=== PATIENT | female | born 1945 | race Caucasian/White ===

== ENCOUNTER 2016-07-18 12:05 | Outpatient (CLI) | payer MEDICARE, OTHER ==
[2005-06-07 09:01] VITALS: BP 155/82
[~2016-07-18] VITALS: Ht 165.1 cm; Wt 68.0 kg
[~2016-07-18 12:05] MED LIST: ATORVASTATIN; BENICAR; CLONAZEPAM PO; COZAAR100 MG PO; FLEXERIL10 MG PO; INDERAL; KLONOPIN 0.5MG0.5 MG PO; LEVOTHYROXINE PO; LIOTHYRONINE S25 MCG PO; NORCO 325 MG-51 TAB PO; PAMELOR 25MG25 MG PO; PRAVACHOL 40MG40 MG PO; PROTONIX 40MG T40 MG PO; SYNTHROID0.05 MG/TA PO
[2016-07-18] MEDS ORDERED: NEURONTIN100 MG/CAP PO (12:21)
[2016-07-18 12:30] VITALS: BP 146/62; PULSE 116; TEMP 98.7
[2016-07-18 13:14] VITALS: BP 146/62; PULSE 116; TEMP 98.7
[2016-08-04] MEDS ORDERED: NEURONTIN100 MG/CAP PO (10:51)
== END 2016-07-18 14:07 | disposition home or self-care (01) ==
LOC: EUO 12:05
DX: K59.00 Constipation, unspecified (principal); K56.41 Fecal impaction

== ENCOUNTER 2016-08-08 08:31 | Outpatient (CLI) | payer MEDICARE, OTHER ==
[2005-06-07 09:01] VITALS: BP 155/82
[~2016-08-08] VITALS: Ht 165.1 cm; Wt 69.9 kg
[~2016-08-08 08:31] MED LIST changes: +NEURONTIN100 MG/CAP PO
[2016-08-08 08:44] VITALS: PULSE 96
[2016-08-08 10:15] VITALS: BP 152/87; PULSE 95
[2016-08-08 10:28] VITALS: BP 152/87; PULSE 97
[2016-08-08 10:30] VITALS: BP 150/81; PULSE 91
[2016-08-08 10:45] VITALS: BP 164/89; PULSE 90
[2016-08-08 11:15] VITALS: BP 160/84; PULSE 90
== END 2016-08-08 12:00 | disposition home or self-care (01) ==
LOC: COL.RAD 08:31
DX: M48.06 Spinal stenosis, lumbar region (principal); M43.17 Spondylolisthesis, lumbosacral region; M96.1 Postlaminectomy syndrome, not elsewhere classified
CPT/HCPCS: Q9965

== ENCOUNTER → 2016-08-17 | Outpatient (CLI) | payer MEDICARE, OTHER | LOC: MC.RAD 10:28 | DX: Z12.31 Encounter for screening mammogram for malignant neoplasm of breast (principal) ==

== ENCOUNTER → 2017-02-21 | Outpatient (CLI) | payer MEDICARE, OTHER | LOC: COL.RAD 09:58 | DX: M48.061 Spinal stenosis, lumbar region without neurogenic claudication (principal); S33.140A Subluxation of L4/L5 lumbar vertebra, initial encounter; M47.817 Spondylosis without myelopathy or radiculopathy, lumbosacral region; Z98.1 Arthrodesis status ==

== ENCOUNTER → 2017-09-07 | Outpatient (CLI) | payer MEDICARE, OTHER | LOC: MC.RAD 11:10 | DX: Z12.31 Encounter for screening mammogram for malignant neoplasm of breast (principal) ==

== ENCOUNTER → 2018-09-14 | Outpatient (CLI) | payer MEDICARE, OTHER | LOC: MC.RAD 10:33 | DX: Z12.31 Encounter for screening mammogram for malignant neoplasm of breast (principal) ==

== ENCOUNTER → 2019-11-15 | Outpatient (CLI) | payer MEDICARE, OTHER | LOC: MC.RAD 12:44 | DX: Z12.31 Encounter for screening mammogram for malignant neoplasm of breast (principal) ==

== ENCOUNTER → 2020-11-25 | Outpatient (CLI) | payer MEDICARE, OTHER | LOC: MC.RAD 10:24 | DX: Z12.31 Encounter for screening mammogram for malignant neoplasm of breast (principal); N64.89 Other specified disorders of breast ==

== ENCOUNTER → 2020-12-03 | Outpatient (CLI) | payer MEDICARE, OTHER | LOC: MC.RAD 12:52 | DX: N64.89 Other specified disorders of breast (principal); R92.2 Inconclusive mammogram ==

== ENCOUNTER → 2020-12-14 | Outpatient (CLI) | payer MEDICARE, OTHER | LOC: MC.RAD 12-09 07:00 | DX: N64.89 Other specified disorders of breast (principal); Z98.82 Breast implant status ==

== ENCOUNTER → 2021-12-15 | Outpatient (CLI) | payer MEDICARE, OTHER | LOC: MC.RAD 10:37 | DX: Z12.31 Encounter for screening mammogram for malignant neoplasm of breast (principal) ==

== ENCOUNTER → 2023-01-17 | Outpatient (CLI) | payer MEDICARE, OTHER | LOC: MC.RAD 10:26 | DX: Z12.31 Encounter for screening mammogram for malignant neoplasm of breast (principal) ==